=== PATIENT | male | born 1995 | race Caucasian/White ===

== ENCOUNTER 2019-06-03 15:03 | Emergency (ER) | payer OTHER ==
--- NOTE | 2019-06-03 15:56 | RAD ---
XR Chest Pa Lat STANDARD HISTORY: Cough, wheezing and congestion COMPARISON: None FINDINGS: The heart size is normal. The lungs are well expanded without focal areas of consolidation, pneumothorax or pleural effusions. IMPRESSION: No radiographic evidence of acute cardiopulmonary process.
== END 2019-06-03 16:03 | disposition home or self-care (01) ==
LOC: NAV ERS 15:03
DX: J11.1 Influenza due to unidentified influenza virus with other respiratory manifestations (principal); Z87.891 Personal history of nicotine dependence
CPT/HCPCS: 71046; 87081; 87430; 87804